=== PATIENT | female | born 1985 | race Caucasian/White ===

== ENCOUNTER 2022-10-06 16:59 | Emergency (ER) | payer OTHER ==
[2022-10-06] MEDS ORDERED: Morphine 2 MG/ML SYRINGE IVPUSH ONE ×2 (17:28→18:31)
[2022-10-06] MEDS: Sodium Chloride 0.9% 10 ML Syringe FLUSH PRN ×2 (17:48→18:38)
[2022-10-06] MEDS ORDERED: Take Home: Acetaminophen/HYDROcodone 325-5 MG, 5 Tab Pack PO ONE (19:04)
== END 2022-10-06 19:30 | disposition home or self-care (01) ==
LOC: LL.ED 16:59
DX: S89.91XA Unspecified injury of right lower leg, initial encounter (principal); S89.92XA Unspecified injury of left lower leg, initial encounter; V00.321A Fall from snow-skis, initial encounter; X50.1XXA Overexertion from prolonged static or awkward postures, initial encounter
CPT/HCPCS: 73562-50; 73562-LT; 96374; 96376; 99283-25; A9270-GY; J2270; J3490

== ENCOUNTER 2023-08-20 10:46 | Emergency (ER) | payer OTHER ==
[2023-08-20 12:01] LABS: BASOPHILS ABSOLUTE AUTO 0.05 K/uL (0.00-0.20); BASOPHILS PERCENT AUTO 0.9 % (0.0-2.0); EOSINOPHILS PERCENT AUTO 1.8 % (0.0-5.0); HEMATOCRIT 39.5 % (34.0-46.0); HEMOGLOBIN 12.7 g/dL (11.7-15.5); LYMPHOCYTES ABSOLUTE AUTO 2.29 K/uL (0.50-3.50); LYMPHOCYTES PERCENT AUTO 41.3 % (10.0-50.0); MEAN CORPUSCULAR HEMOGLOBIN 28.7 pg (28.2-33.3); MEAN CORPUSCULAR HGB CONC 32.2 g/dL (31.7-36.0); MEAN CORPUSCULAR VOLUME 89.2 fL (84.0-98.0); MONOCYTES ABSOLUTE AUTO 0.54 K/uL (0.00-1.00); MONOCYTES PERCENT AUTO 9.7 % (2.0-14.0); NEUTROPHILS ABSOLUTE AUTO 2.56 K/uL (1.40-7.00); NEUTROPHILS PERCENT AUTO 46.3 % (45.0-80.0); PLATELET COUNT,PLT 311 K/uL (150-350); RED BLOOD CELL COUNT 4.43 M/uL (3.77-5.09); RED CELL DISTRIBUTION WIDTH 13.9 % (11.2-14.1); WHITE BLOOD CELL COUNT,WBC 5.5 K/uL (4.0-10.2)
[2023-08-20 12:29] LABS: ALANINE AMINOTRANSFERASE,ALT 33 U/L (12-78); ALBUMIN 3.5 g/dL (3.4-5.0); ALKALINE PHOSPHATASE 52 IU/L (46-116); ANION GAP 9.7 meq/L (7-15); ASPARTATE AMNIOTRANSFERASE,AST 17 U/L (15-37); BILIRUBIN TOTAL 0.4 mg/dL (0.2-1.0); BLOOD UREA NITROGEN,BUN 15 mg/dL (7-18); CALCIUM 8.9 mg/dL (8.5-10.1); CARBON DIOXIDE,CO2 28.3 mmol/L (21.0-32.0); CHLORIDE,CL 102 mmol/L (98-107); CREATININE 0.82 mg/dL (0.51-1.17); ESTIMATED GFR 94 mL/min (>=60); GLUCOSE RANDOM 92 mg/dL (70-99); MAGNESIUM 1.9 mg/dL (1.8-2.4); POTASSIUM,K 3.9 mmol/L (3.5-5.1); PROTEIN TOTAL,TP 6.6 g/dL (6.4-8.2); SODIUM,NA 140 mmol/L (136-145); TSH ULTRASENSITIVE 0.919 mIU/mL (0.358-3.740)
== END 2023-08-20 13:30 | disposition home or self-care (01) ==
LOC: LL.ED 10:46
DX: I10 Essential (primary) hypertension (principal); E03.9 Hypothyroidism, unspecified; E66.9 Obesity, unspecified
CPT/HCPCS: 36415; 80053; 83735; 84443; 85025; 99283; 99284